=== PATIENT | female | born 1985 | race Caucasian/White ===

== ENCOUNTER 2024-03-27 13:58 | Outpatient (REF) | payer OTHER, SELFPAY ==
--- OUTSIDE RECORDS SUMMARY | 2024-03-27 14:10 | XMS_ITS | Continuity of Care Document ---
Author Organization [facility] ter Address [address] [place] [id number]- Support Name Relationship Address Phone MARY CHAIREZ Personal Relationship Unknown U navailable LUL PAZ Personal Relationship Unknown Un available ALEXANDER, ARIEL child Unknown Unavailable MIHAELA, SELWYN grandparent Unknown Unavailable ALEXANDER, PAVITHRA child Unknown Unavailable MIHAELA, MARY Personal Relationship Unknown U navailable MIHAELA, MARY Personal Relationship Unknown U navailable PAZ, LUL Personal Relationship Unknown Un available MIHAELA, MARY Personal Relationship Unknown U navailable PAZ, ALEXANDER Personal Relationship Unknown Un available PAZ, LUL Personal Relationship Unknown Un available PAZ, LUL Personal Relationship Unknown Un available MIHAELA, MARY Personal Relationship Unknown U navailable ALEXANDER, ARIEL unrelated friend Unknown Unavaila ble PAZ, LUL Personal Relationship Unknown Un available PAZ, LUL Personal Relationship Unknown Un available MIHAELA, MARY Personal Relationship Unknown U navailable PAZ, LUL Personal Relationship Unknown Un available MIHAELA, MARY Personal Relationship Unknown U navailable Care Team Providers Care [employer] Consultant Name Role Phone Zahira Ma MD Primary Care Physician [phone] [place] [facility] [place]): [place]13[place] - 03/13/[address] [address]- Discharge Disposition: A-D/C Home Attending Physician: Danny Ramsay MD Admitting Physician: Danny Ramsay MD Referring Physician: Danny Ramsay MD Encounter Type: Disch Daystay Allergies, Adverse Reactions, Alerts Substance Criticality Severity Reaction Reaction Severity Status Ceclor rash Active Glutens GI distress has celiac disease Active Immunizations Given and Recorded Vaccine Date Status Refusal Reason influenza virus vaccine, inactivated 1 03/02/24 Gi tobias influenza virus vaccine, inactivated 03/01/23 Juan M rded influenza virus vaccine, inactivated 02/15/22 Juan M rded influenza virus vaccine, inactivated 02/09/21 Juan M rded influenza virus vaccine, inactivated 01/09/20 Juan M rded influenza virus vaccine, inactivated 01/22/19 Give n influenza virus vaccine, inactivated 01/04/18 Juan M rded influenza virus vaccine, inactivated 01/12/17 Juan M rded influenza virus vaccine, inactivated 04/23/13 Give n influenza virus vaccine, inactivated 01/02/09 Give n tetanus/diphtheria/pertussis, acel(Tdap) 06/13/23 Recorded tetanus/diphtheria/pertussis, acel(Tdap) 08/01/19 Recorded tetanus/diphtheria/pertussis, acel(Tdap) 01/03/18 Recorded SARS-CoV-2(COVID-19)mRNA-LNP vac([id number]) 03/01/23 Recorded pneumococcal 20-valent conjugate vaccine 11/21/22 Given [id number] 12y+ bivalent booster vax 03/24/22 Recorded SARS-CoV-2 (COVID-19) mRNA-1273 vaccine 01/10/21 R ecorded SARS-CoV-2 (COVID-19) mRNA-1273 vaccine 06/04/20 R ecorded SARS-CoV-2 (COVID-19) mRNA-1273 vaccine 05/07/20 R ecorded FluLaval (oldterm) 01/19/10 Given influ virus vac, H1N1, inactive(oldterm) 05/05/09 Given Tet/Diphth/Acel, Pertussis (oldterm) 2 06/26/08 Gi tobias Pneumococcal Vaccine (oldterm) 06/16/08 Given Influenza Virus Vaccine (oldterm) 01/28/08 Given Influenza Inactive (IM) (oldterm) 02/08/07 Given diphtheria-tetanus toxoids (DT) 02/08/98 Given Hepatitis B Vaccine (old term) 3 02/04/97 Given Measles/Mumps/Rubella Virus Vaccine 4 07/04/88 Giv en 1Result Comment: [id number] 2Admin Note: SANOFI PASTEUR 3Admin Note: # 2 : 03-11-97, # 3 : 11-08-97 4Admin Note: # 2 : 1-98 Medications desmopressin 0.15 mg/inh nasal spray 1 sprays, Nares, Both, Once, dose may be repeated after 12 hrs and thereafter once daily if needed up to 3 days., # 2.5 mL, 1 Refills, Soft Stop, 08/14/23 11:23:00 PM EDT, [place], [facility], Partial fill upon patient request if the prescription is for a schedule II opioid drug., 177,cm, 08/14/23 14:19:00 EDT, Height, 123.7, kg, 08/14/23 14:19:00 EDT, Dry Weight Start Date: 08/14/23 Status: Ordered Quantity: 2.5 Unit: mL Repeat number: 2 desmopressin 0.15 mg/inh nasal spray 1 sprays, Nares, Both, Once, dose may be repeated after 12 hrs and thereafter once daily if needed up to 3 days., # 2.5 mL, 1 Refills, Soft Stop, 08/16/23 8:41:00 AM EDT, [place], [facility] [address], Partial fill upon patient request if the prescription is for a schedule II opioid drug., 177, cm, 08/14/23 14:19:00 EDT, Height, 123.7, kg, 08/14/23 14:19:00 EDT, Dry Weight Start Date: 08/16/23 Status: Ordered Quantity: 2.5 Unit: mL Repeat number: 2 desmopressin 0.15 mg/inh nasal spray 1 sprays, Naris, Left, Once, PRN Other, if bleeding or before procedure, # 5 mL, 1 Refills, Soft Stop, 09/28/20 12:39:00 PM EDT, [place], Partial fill upon patient request if the prescription is for a schedule II opioid drug. Start Date: 09/28/20 Status: Ordered Quantity: 5.0 Unit: mL Repeat number: 2 desmopressin 4 mcg/ml intravenous solution 8.75 mL = 35 mcg, IV Infusion, Once, 35 mcg in 50 cc NS IVPB 0ver 30 min , 30 min prior to the procedure, # 8.75 mL, 0 Refills, Soft Stop, 02/06/20 5:15:00 PM EDT Start Date: 02/06/20 Status: Ordered Quantity: 8.75 Unit: mL Repeat number: 1 ferrous gluconate 324 mg oral tablet 1 tablet = 324 mg, By Mouth, Daily, # 90 tablet, 1 Refills, Maintenance, 08/31/21 5:29:00 PM EDT, [id number], Partial fill upon patient request if the prescription is for a schedule II opioid drug., 178, cm, 07/31/21 11:01:00 EDT, Height, 126, kg, 09/29/20 9:44:00 EDT, Dry Weight Start Date: 08/31/21 Status: Ordered Quantity: 90.0 Unit: tablet Repeat number: 2 hydrOXYzine pamoate 25 mg oral capsule 1 capsule = 25 mg, By Mouth, 2 times a day, PRN for anxiety, # 40 capsule, 1 Refills, Maintenance, 03/19/20 10:06:00 AM EST, Capsule, [facility], Partial fill upon patient request if the prescription is for a schedule II opioid drug., 178, cm, 03/18/20 8:29:00 EST, Height, 123.2, kg, 03/02/20 10:59:00 EST, Dry Weight Start Date: 03/19/20 Status: Ordered Quantity: 40.0 Unit: capsule Repeat number: 2 Indication: Other mental disorders complicating the puerperium ibuprofen 800 mg oral tablet 800 mg, 1, tablet, By Mouth, Every 8 hours, PRN, (4-6), may give 400mg per patient preference and re-dose with 400mg within 8 hours if needed. Patient should only receive a total of 800mg of Ibuprofen every 8 hours., Refills 0, Maintenance, Pain , Moderate, 10/05/19 7:47:00 AM EDT Start Date: 10/05/19 Status: Ordered Repeat number: 1 Incassia 0.35 mg oral tablet TAKE 1 TABLET BY MOUTH EVERY DAY Start Date: 11/24/23 Status: Ordered Repeat number: 1 levothyroxine 75 mcg (0.075 mg) oral tablet See Instructions, TAKE 1 TABLET BY MOUTH EVERY DAY, # 90 tablet, 1 Refills, Maintenance, 02/28/24 1:07:00 PM EST, [id number], 180, cm, 02/09/24 10:26:00 EDT, Height, 117, kg, 09/08/23 15:32:00 EDT, Dry Weight Start Date: 02/28/24 Status: Ordered Quantity: 90.0 Unit: tablet Repeat number: 1 LORazepam 0.5 mg oral tablet 1 tablet = 0.5 mg, By Mouth, 0 Refills, Maintenance, 02/24/20 4:42:00 PM EST, Partial fill upon patient request Start Date: 02/24/20 Status: Ordered Repeat number: 1 oxyCODONE 5 mg oral tablet 5 mg, By Mouth, Every 4 hours, PRN, # 6 tablet, Refills 0, Tot. Refills 0, Acute 03/14/24 4:55:00 PMEST, Pain , Severe, 03/13/24 4:55:00 PM EST, Route to Pharmacy Electronically, [id number], Partial fill upon patient request if the prescription is for a schedule II opioid drug., 180, cm, 03/02/24 9:05:00 EST, Height, 129, kg, 03/13/24 14:58:00 EST, Dry Weight Start Date: 03/13/24 Stop Date: 03/14/24 Status: Ordered Quantity: 6.0 Unit: tablet Repeat number: 1 ProAir HFA 90 mcg/inh inhalation aerosol with adapter 2, puffs, Inhalation, Every 4 hours, PRN, # 8.5 each, Refills 2, Maintenance, 09/20/22 7:56:00 AM EDT, Route to Pharmacy Electronically, [id number], [id number], 178, cm,05/17/22 13:43:00 EST, Height, 126, kg, 09/29/20 9:44:00 EDT, Dry Weight Start Date: 09/20/22 Status: Ordered Quantity: 8.5 Unit: each Repeat number: 1 sertraline 100 mg oral tablet 2 tablet = 200 mg, By Mouth, Daily, # 180 tablet, 3 Refills, Maintenance, 02/09/24 10:39:00 AM EDT, [id number], 180, cm, 02/09/24 10:26:00 EDT, Height, 117, kg, 09/08/23 15:32:00 EDT, Dry Weight Start Date: 02/09/24 Status: Ordered Quantity: 180.0 Unit: tablet Repeat number: 4 Vitamin D3 1000 intl units oral capsule 1 capsule = 25 mcg, By Mouth, Daily, # 100 capsule, 2 Refills, Maintenance, 08/31/21 5:30:00 PM EDT,Capsule, [facility], Partial fill upon patient request if the prescription is for a schedule II opioid drug., 178, cm, 07/31/21 11:01:00 EDT, Height, 126, kg, 09/29/20 9:44:00 EDT, Dry Weight Start Date: 08/31/21 Status: Ordered Quantity: 100.0 Unit: capsule Repeat number: 3 Problem List Condition Confirmation Course Effective Dates Status Health St atus Informant Acute sinusitis Confirmed Active Anxiety disorder Confirmed Active Asthma, mild intermittant Confirmed Active Tendonitis, calcific, shoulder Confirmed Active Carpal tunnel syndrome, left Confirmed Active Celiac disease Confirmed Active Dyspnea Confirmed Active 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 Active Carmen's disease Confirmed Active History of COVID-19 Confirmed Active Hypothyroid Confirmed Active Iron deficiency anemia Confirmed Active Kyphosis deformity of spine Confirmed Active Leukocytosis Confirmed Active Low back pain Confirmed Active Palpitations Confirmed Active Healthcare maintenance Confirmed Active PCOS (polycystic ovarian syndrome) Confirmed Active depression Confirmed Active Major depression, recurrent Confirmed Active Seasonal allergic rhinitis Confirmed Active Severe obesity (BMI 35.0-39.9) with comorbidity Confirmed Active Right shoulder pain Confirmed Active Shoulder pain, left Confirmed Active Vitamin D deficiency Confirmed Active von Willebrand disease Confirmed Active Vital Signs Most recent to oldest [Reference Range]: 1 2 Weight 129 kg (03/13/24 2:58 PM) Oxygen Saturation [94-100 %] 97 % (03/13/24 4:59 PM) 97 % (03/13/24 2:58 PM) Pulse Rate [55-90 bpm] 69 bpm (03/13/24 2:58 PM) Blood Pressure [90-138/55-84 mm Hg] 134/ 76mm Hg (03/13/24 4:45 PM) 129/78mm Hg (03/13/24 2:58 PM) Respiratory Rate [16-30 br/min] 11 br/mi n *L* (03/13/24 4:59 PM) 13 br/min *L* (03/13/24 2:58 PM) Temperature [96.8-100.4 DegF] 98.4 DegF (03/13/24 4:45 PM) 97.3 DegF (03/13/24 2:58 PM) Mode of Delivery (Oxygen) Room air (03/13/24 4:45 PM) Room air (03/13/24 2:58 PM) Blood pressure sites Arm, right (03/13/24 4:45 PM) Arm, right (03/13/24 2:58 PM) Temperature Route Temporal (03/13/24 4:45 PM) Temporal (03/13/24 2:58 PM) Dry Weight 129 kg (03/13/24 2:58 PM) Weight Obtained Via Standing scale (03/13/24 2:58 PM) Dry Weight Obtained Via Standing scale (03/13/24 2:58 PM) Social History Social History Type Response Smoking Status Never smoker entered on: 03/07/14 Sex Sex Representation Female (finding) History and physical note * Event Display: History and Physical Hospital Authored Date: [id number] Note * Cheryl Mattson RN: PERFORM Event Display: Discharge/Transfer Note Hospital Authored Date: [id number] Nursing Discharge Note Entered On: 03/13/2024 17:33 EST Performed On: 03/13/2024 17:33 EST by Cheryl Mattson RN Nursing Discharge Note 2 Discharge Time : 03/13/2024 17:31 EST Discharge Level of Care at Discharge : Home/Fdc/Foster Care Patient Left Unit Via : Ambulatory Patient Accompanied Off Unit with : Significant other DC Instructions Provided & Signed by Pt : Yes Patient Understands D/C Instructions : Yes Verbalized Understanding of D/C Plan By : Significant other Patient Instructions Discharge Signed : Yes Did Pt have Specialty Bed or Wound Vac : No Cheryl Mattson RN - 03/13/2024 17:33 EST * Jennifer Moncada RN: PERFORM Event Display: Patient Education/Instruction Authored Date: [id number] Surgery Adult Discharge Instructions [address] [address] Name: MARY CHAIREZ : 1985?? Visit: 03/13/2024 14:30?? Current Date: 03/13/2024 16:56 ?? Account: [id number]?? Surgery Discharge Instructions We would like to thank you for allowing us to assist you with your healthcare needs. The following includes patient education materials and information regarding your injury/illness. Our entire staffstrives to provide an excellent experience for our patients and their families. PLEASE ENSURE YOU FOLLOW-UP PER THE INSTRUCTIONS BELOW! ?? YOUR OPINION IS IMPORTANT TO US! Please complete the survey you may receive by mail or email. Your feedback will be used to make improvements to the healthcare experiences of our patients and their families. Surveys are administered by [email or web address]. ?? If further treatment with your primary care physician or another doctor is recommended, it is important for you to keep the appointment. Call your primary care physician or return to the Emergency Department immediately if your condition worsens, fails to improve, or new symptoms develop. If you need to find a doctor, you can call [facility] [employer] Link for a referral at [phone] or toll free at [phone] or log in to [email or web address].. ?? [facility], in keeping with [facility] guidance, no longer requires face masks for staff, patientsor visitors in most situations. Similiar to time spent indoors at other locations, there is the chance that you were exposed to repiratory viruses during your time with us (such as flu or COVID-19). If you develop symptoms concerning for a viral respiratory infection, please seek testing (and treatment if indicated) from your medical provider or home test kit. ?? You can view and manage your care through the patient portal or by using a health care jerry of your choosing. GoodRx is a website that allows you to securely view your medical information including your hospital discharge summary, office visit summaries, medications and follow-up visits. You can also request appointments, renew medications, and request access to your medical information using a health care jerry of your choosing, or just ask a question. You are entitled to know the individuals who participated in your treatment. This information is available within your medical record and will be provided upon your request. You can enroll at [email or web address] or register d uring your next office visit. You have been discharged from [facility], Patient Care Unit: [facility]??. If you have any questions regarding these instructions after you leave, please call us and we will be happy to assist you. [facility] Your Care Team Attending Physician Danny Ramsay MD?? Consulting Providers Tate Peters MD?? Discharging Providers Danny Ramsay MD Reason for Admission CARPAL TUNNEL SYNDROME CS DS Primary Care Provider Zahira Ma MD? Advance Directive Health Care Proxy on File Yes - Health Care Proxy What to do next Instructions From Your Doctor ?? Orders? 03/13/24 16:54:00 EST?? Prescriptions??, ??03/13/24 16:54:00 EST?? Instructions from your Care Team Follow up with provider. Ice 20 min on/40 min off. Range of Motion Elevate hand on pillow Scheduled Follow-Up Appointments Monday 12:40 PM EST ?? With: Zahira Ma MD Where: [address] [address]- Status: Pending You Need to Schedule the Following Appointments Follow Up with??Danny Ramsay Where: [address] [place] [address] [facility] (1) Follow Up with??Zahira Ma When:??In 0 days Discharge Medications MARY CHAIREZ :1985 Visit Date:03/13/2024 Medications: Please continue your medications until treatment is completed or stopped by your provider. You may resume your daily prescription medications. Discuss any questions related to medications with your provider. What How Much When Why Instructions Next Dose New Oxycodone (oxyCODONE 5 mg oral tablet) 5 Milligram Oral Every 4 hours as needed for Pain , Severe Pickup at [facility] #[id number] Unchanged Albuterol (ProAir HFA 90 mcg/ inh inhalation aerosol with adapter) 2 puff(s) Inhalation Every 4 hours as needed for NEEDED FOR WHEEZING/SHORTNESS OF BREATH Unchanged Cholecalciferol (Vitamin D3 1000 intl units oral capsule) 1 capsule Oral Daily Unchanged Desmopressin (desmopressin 0.15 mg/ inh nasal spray) 1 spray(s) Nares, Both Once dose may be repeated after 12 hrs and thereafter once daily if needed up to 3 days. ?? Unchanged Desmopressin (desmopressin 0.15 mg/ inh nasal spray) 1 spray(s) Nares, Both Once dose may be repeated after 12 hrs and thereafter once daily if needed up to 3 days. ?? Unchanged Desmopressin (desmopressin 0.15 mg/ inh nasal spray) 1 spray(s) Naris, Left Once as needed for Other if bleeding or before procedure ?? Unchanged Desmopressin (desmopressin 4 mcg/ ml intravenous solution) 8.75 Milliliter Intravenous Infusion Once 35 mcg in 50 cc NS IVPB 0ver 30 min , 30 min prior to the procedure ?? Unchanged Ferrous Gluconate (ferrous gluconate 324 mg oral tablet) 1 tab(s) Oral Daily Unchanged HydrOXYzine (hydrOXYzine pamoate 25 mg oral capsule) 1 capsule Oral Twice a day as needed for for anxiety depression Unchanged Ibuprofen (ibuprofen 800 mg oral tablet) 1 tab(s) Oral Every 8 hours as needed for Pain , Moderate (4-6), may give 400mg per patient preference and re-dose with 400mg within 8 hours if needed. ?? Patient should only receive a total of 800mg of Ibuprofen every 8 hours. ?? Unchanged Levothyroxine (levothyroxine 75 mcg (0.075 mg) oral tablet) See instructions TAKE 1 TABLET BY MOUTH EVERY DAY ?? Unchanged Lorazepam (LORazepam 0.5 mg oral tablet) 1 tab(s) Oral Unchanged Norethindrone (Incassia 0.35 mg oral tablet) TAKE 1 TABLET BY MOUTH EVERY DAY ?? Unchanged Sertraline (sertraline 100 mg oral tablet) 2 tab(s) Oral Daily Pharmacy Information [facility]/pharmacy #[id number]: [address], [place] [id number] [phone] Allergies (NKA means No Known Allergies) Ceclor??(rash) Glutens??(GI distress, has celiac disease) Education Materials Below is the list of Educational Leaflet Providered with your Discharge Instructions. Web[employer] Ignite Patient Education - ??NSAID Analgesic Schedule?? Valuables and Belongings I fully understand and agree that [facility] accepts no responsibility for all my personal property including clothing, toilet articles, radios, jewelry, dentures, hearing aids, rings, money, or any other property that is in my possession or is brought to me after admission. I understand certain valuables may be placed in a hospital safe for a short period of time. I understand that the hospital is not liable for loss or damage due to accident, fire, or other natural occurrence while said property is in the safe. I accept full responsibility for any personal property that I keep with me, and will not hold the hospital responsible in case of loss or disappearance. I acknowledge that i have been encouraged to send valuables and belongings home. ?? Review of Valuable and Belonging List: With patient Date for Pt to Sign Valuables/Belongings: 03/13/24 14:58:00 ?? Valuables & Belongings ?? Clothes Electronic devices Jewelry Monetary Items Personal devices Miscellaneous Medications (Valuables) Valuables at Bedside Pants, Shirt, Shoes, Undergarments Cell phone ? Valuables Sent Home ? Valuables Sent to Security ? Valuables Sent to Locker ? Other Discharge Information ? Pulmonary Rehab Status?? Pulmonary Rehab Discharge Status?? Respiratory Rate:??13 br/min??Low ? Common Emergency Awareness Tips IS IT A STROKE? Act FAST and Check for these signs: FACE Does the face look uneven? ARM Does one arm drift down? SPEECH Does their speech sound strange? TIME Call at any sign of stroke ?? Heart Attack Signs Chest discomfort: Most heart attacks involve discomfort in the center of the chest and lasts more than a few minutes, or goes away and comes back. It can feel like uncomfortable pressure, squeezing, fullness or pain. Discomfort in upper body: Symptoms can include pain or discomfort in one or both arms, back, neck, jaw or stomach. Shortness of breath: With or without discomfort. Other signs: Breaking out in a cold sweat, nausea, or lightheaded. Remember, MINUTES DO MATTER. If you experience any of these heart attack warning signs, call to get immediate medical attention! ?? Smoking can increase your chances of developing chronic health problems and can cause harmful effects to other family members in your house. If you smoke, you are strongly encouraged to quit. Please call [facility] Link at [phone] or [phone] ([phone]) or log in to [email or web address] for referrals to smoking cessation programs. ?? The National Suicide Prevention Hotline is available 31/10 if you or someone you know needs to find a reason to keep living. By calling 7-893-231-WellFX (6731) you'll be connected to a skilled, trained counselor at a crisis center in your area. SURGERY DISCHARGE INSTRUCTIONS SIGNATURE PAGE MARY CHAIREZ Location:[facility] Registration Date and Time:03/13/2024 14:30 EST Primary Care Physician: Anil MERA, Zahira Cleveland, Attending Physician: Devendra MERA, Danny Cleveland, I MARY CHAIREZ, have received the above patient education materials/instructions and have verbalized understanding. If ambulance or transport services are being used I further acknowledge being given a choice of service. ?? If you need to contact me, please call me at this number: . Patient/Site Leasing Agent Name: Patient/Site Leasing Agent Signature: Relationship to Patient: Witness Name/Signature: Date: * Jennifer Moncada RN: PERFORM, SIGN, VERIFY Event Display: Patient Education Handout Authored Date: * Jennifer Moncada RN: PERFORM Event Display: Patient Education Leaflets Authored Date: NSAID Analgesic Schedule ?? 604 NSAID???s Analgesic Schedule ?? Pain is the primary source of illness following your procedure and can include dehydration, difficulty and painful swallowing, and weight loss. These symptoms can lead to increased post-operative visits and hospital readmission. The best way to control pain is to take pain medications regularly. Your doctor has recommended both Ibuprofen and Acetaminophen (generic/store brands are okay, too). These can be picked up over the counter at your pharmacy of choice. Follow the instructions on the bottle to determine the proper dosage to give. The simplest way to take these medications it to rotate the two at 3-hour intervals. Here is a sample diagram. The time you take your medications may vary from this example. Do not give Ibuprofen more than every 6 hours or Acetaminophen every 4 hours. Do not give Acetaminophen if your doctor has given you a prescription that contains Acetaminophen. ? Patient Care team information Care Team Personnel Name: Mignon Davis Position: [facility] Onco RN Member Role: Primary Care Nurse Name: Zahira Ma MD Position: [facility] Physician - Primary Care Member Role: PCP Address: [address] [place] [address], [address] [place], [place] [address] Telecom: Name: Eryn Biggs [place] Position: [facility] Outreach Member Role: [employer] Consulting Physician Name: Alexa Paz RN Position: [facility] OB RN Member Role: Primary Care Nurse Care Team Related Persons Name: SELWYN CHAIREZ Name: PAVITHRA ALEXANDER Name: ARIEL ALEXANDER Name: ARIEL ALEXANDER Insurance Providers Guarantor name: MARY MIHAELA Health Plan Information #: 1 Payer: [employer] Member Number: [id number] Policy Number: NA Group Number: [id number] Health Plan Information #: 2 Payer: [facility] [employer] Member Number: [id number] Policy Number: NA Group Number: [id number]
[2024-03-27 17:31] LABS: MANUAL DIFF FLAG NO
[2024-03-27 17:40] LABS: Basophils Absolute Auto 0.1 X10*3/uL (0.0-0.2); Basophils Percent Auto 0.5 % (0-2); Eosinophils Absolute Auto 0.2 X10*3/uL (0.0-0.4); Eosinophils Percent Auto 1.6 % (0-4); Hematocrit 34.9 % (37.0-47.0); Hemoglobin 10.9 g/dl (12.0-16.0); Imm Gran Abs Auto 0.05 X10*3/uL (0.00-0.03); Imm Gran Pct Auto 0.5 % (0.0-0.4); Lymphocytes Absolute Auto 4.3 X10*3/uL (1.2-4.9); Lymphocytes Percent Auto 43.4 % (20-40); Mean Corpuscular HGB Conc 31.2 g/dl (31.0-35.0); Mean Corpuscular Hemoglobin 23.5 pg (27.0-33.0); Mean Corpuscular Volume 75.2 fL (80.0-98.0); Monocytes Absolute Auto 0.4 X10*3/uL (0.1-1.2); Monocytes Percent Auto 4.4 % (2-11); Neutrophils Absolute Auto 4.9 x10*3/uL (2.0-8.3); Neutrophils Percent Auto 49.6 % (45-73); Platelet Count 328 X10*3/uL (160-400); Red Blood Count 4.64 X10*6/uL (4.20-5.50); Red Cell Distribution Width 16.2 % (11.0-16.0); White Blood Count 9.9 X10*3/uL (4.8-10.8)
[2024-03-27 18:04] LABS: Alanine Aminotransferase 17 U/L (0-31); Albumin Level 4.5 g/dL (3.5-5.0); Alkaline Phosphatase 48 U/L (39-117); Anion Gap 13 (12-20); Aspartate Amino Transferase 18 U/L (5-31); Bilirubin Total 0.3 mg/dL (0.0-1.0); Blood Urea Nitrogen 13 mg/dL (9-16); Calcium 9.8 mg/dL (8.4-10.2); Carbon Dioxide 26 mmol/L (22-29); Chloride 104 mmol/L (96-108); Cholesterol 241 mg/dL (<200); Estimated Glomerular Filt Rate > 60; Glucose Random 104 mg/dL (60-115); HDL Cholesterol 62 mg/dL (>40); Iron 68 mcg/dL (30-160); Magnesium 2.1 mg/dL (1.6-2.6); Percent Iron Saturation 21 % (15-50); Potassium 3.7 mmol/L (3.3-5.1); Sodium 139 mmol/L (135-145); Total Iron Binding Capacity 321 mcg/dL (228-428); Total Protein 8.2 g/dL (6.5-8.0); Unsaturated Iron Binding 253 ug/dL
[2024-03-27 18:09] LABS: Ferritin 63 ng/mL (10-122); Thyroid Stimulating Hormone 96.54 uIU/mL (0.32-4.0); Vitamin D 25-OH Total 20.9 ng/mL (>30)
[2024-03-27 18:12] LABS: Vitamin B12 288 pg/mL (200-900)
[2024-03-28 11:00] LABS: LDL Cholesterol Direct 156 mg/dL (<100)
[2024-03-28 15:44] LABS: Hepatitis B Surface Ab Qnt <5 mIU/mL (> OR = 10)
[2024-04-02 20:39] LABS: Lipoprotein A 55 nmol/L (<75)
[2024-04-05 05:44] LABS: Apolipoprotein B 133 mg/dL (<90)
== END 2024-03-27 13:59 | disposition home or self-care (01) ==
LOC: HO.WFDLDS 13:58
PROVIDERS: Visit Provider Internal Medicine
DX: Z00.00 Encounter for general adult medical examination without abnormal findings (principal); K90.0 Celiac disease; F33.9 Major depressive disorder, recurrent, unspecified; E06.3 Autoimmune thyroiditis; D68.00 Von Willebrand disease, unspecified
CPT/HCPCS: 36415; 80053; 82172; 82306; 82465; 82607; 82728; 83540; 83695; 83718; 83721; 83735; 84443; 85025; 86317

== ENCOUNTER 2024-11-15 09:21 | Outpatient (REF) | payer OTHER, SELFPAY ==
--- OUTSIDE RECORDS SUMMARY | 2024-11-15 09:28 | XMS_ITS | Encounter Summary ---
Author Organization [facility] Address [address] [place] [address] Care Team Providers Care Financial Recording Clerk Name Role Phone Ramy Marin Primary Care Provider UnavailZahira Cornejo Primary Care Provider UnavailRamy Flores Unavailable Unavailable Encounter Details Date Type Department Care Team Description 08/24/2010 Water Resource Consultant Report Medical Records [address] [place] [address] Emery Cheng Social History Tobacco Use Types Packs/Day Years Used Date Smoking Tobacco: Never Assessed Sex Assigned at Date Recorded Not on file Job Start Date Occupation Industry Not on file Not on file Not on file documented as of this encounter Plan of Treatment Not on file documented as of this encounter Visit Diagnoses Not on filedocumented in this encounter Care Teams Financial Recording Clerk Relationship Specialty Start Date End Date Ramy Marin PCP - General 10/08/99 07/19/20 Zahira Ma PCP - General Internal Medicine 07/20/20 Ramy Marin 07/20/20 documented as of this encounter
--- OUTSIDE RECORDS SUMMARY | 2024-11-15 09:28 | XMS_ITS | Patient Health Record ---
Author Organization [facility] Address [address] [place] [phone] Care Team Providers Care Training Engineer Name Role Phone Driss MERA, Jamilah Primary Care Provider Un available Clinton Key Unavailable [phone] Reason For Referral No Information Medications Medication SIG (Take, Route, Frequency, Duration) Notes Start Date End Date Status Hyoscyamine Sulfate 0.125 MG TAKE 1-2 TABLETS BY MOUTH 4 TIMES DAILY NEEDED FOR ABDOMINAL CRAMPS for 30 Active Plan Of Treatment No Information
--- OUTSIDE RECORDS SUMMARY | 2024-11-15 09:28 | XMS_ITS | Clinical Summary ---
Author Organization [facility] Address [address] [place] [address] Phone Care Team Providers Care Panel Cutter Name Role Phone Unavailable Primary Care Provider Unavailabl e Immunizations Immunization Administration Dates Next Due DTP 10/09/1991,08/08/1988 Hep B, ped/adol 11/08/1997,03/10/1997,01/08/1997 MMR 02/08/1998,06/08/1988 OPV 10/09/1991,06/08/1988 Td (adult) (Tenivac), 5 Lf t etanus toxoid, PF, adsorbed 02/08/1998 Family History Relation Name Status Comments Mother Alive Mother: Alive a nd well Sister 1 Alive Sister: Alive a nd well, Alive and well Sister 2 Alive Sister: Alive a nd well, Alive and well Social History Tobacco Use Types Packs/Day Years Used Date Smoking Tobacco: Never Assessed Comments Unknown Sex and Gender Information Value Date Recorded Sex Assigned at Not on file Legal Sex Female 4:37 PM EDT Gender Identity Not on file Sexual Orientation Not on file Plan of Treatment Health Maintenance Due Date Last Done Comments IPV Vaccines (3 of 3 - 4-dos e series) 04/10/1992 10/09/1991, 06/08/1988 DTaP,Tdap,and Td Vaccines (4 - Tdap) 02/09/1998 02/08/1998, 10/09/1991, 08/08/1988 Varicella Vaccines (1 of 2 - 13+ 2-dose series) 10/24/1999 HPV Vaccines (1 - 3-dose SCD M series) 2013 COVID-19 Vaccine (2023-2 5 season) 2023 Influenza Vaccines (#1) 2024 Hepatitis B Vaccines Completed 11/08/1997, 03/10/1997, 01/08/1997 MMR Vaccines Completed 02/08/1998, 06/08/1988 HIB Vaccines Aged Out No longer eligi ble based on patient's age to complete this topic Hepatitis A Vaccines Aged Out No long er eligible based on patient's age to complete this topic Men B Vaccine Aged Out No longer elig ible based on patient's age to complete this topic Meningococcal Vaccine Aged Out No artie peter eligible based on patient's age to complete this topic Pneumococcal Vaccine Aged Out No long er eligible based on patient's age to complete this topic
--- OUTSIDE RECORDS SUMMARY | 2024-11-15 09:28 | XMS_ITS | Clinical Summary ---
Author Organization [facility] Address [address] [place] [address] Care Team Providers Care Media Director Name Role Phone Unavailable Primary Care Provider Unavailabl e Social History Tobacco Use Types Packs/Day Years Used Date Smoking Tobacco: Never Assessed Comments Unknown Sex and Gender Information Value Date Recorded Sex Assigned at Not on file Legal Sex Female 10:52 AM EST Gender Identity Not on file Sexual Orientation Not on file Plan of Treatment Health Maintenance Due Date Last Done Comments Hepatitis C Virus Screening 1986 HIV Screening 10/24/1999 DTaP/Tdap/Td Vaccines (1 - Tdap) 2005 Hepatitis B Vaccines (1 of 3 - 19+ 3-dose series) 2005 COVID-19 Vaccine (2023-2 5 season) 2023 HPV Vaccines Aged Out No longer eligi ble based on patient's age to complete this topic Pneumococcal Vaccine: Pediat will (0-5 Years) and At-Risk Patients (6 to 49 Years) Aged Out No longer eligible b ased on patient's age to complete this topic
[2024-11-15 12:58] LABS: Free T4 (Free Thyroxine) 0.82 ng/dL (0.71-1.85)
== END 2024-11-15 09:22 | disposition home or self-care (01) ==
LOC: HO.WFDLDS 09:21
PROVIDERS: Visit Provider Internal Medicine
DX: E03.9 Hypothyroidism, unspecified (principal)
CPT/HCPCS: 36415; 84439; 84443

== ENCOUNTER 2025-02-07 07:58 | Outpatient (REF) | payer OTHER, SELFPAY ==
--- OUTSIDE RECORDS SUMMARY | 2025-02-07 08:03 | XMS_ITS | Encounter Summary ---
Author Organization [facility] Address [address] [place] [phone] Phone Care Team Providers Care V Belt Builder Name Role Phone Mignon Quiroga MD Primary Care Provider Encounter Details Date Type Department Care Team (Late st Contact Info) Description 11/24/2016 Conversion Encounter [facility] [place] [address] [place] [address] Social History Tobacco Use Types Packs/Day Years Used Date Smoking Tobacco: Never Assessed Comments Unknown Sex and Gender Information Value Date Recorded Sex Assigned at Not on file Legal Sex Female 4:37 PM EDT Gender Identity Not on file Sexual Orientation Not on file documented as of this encounter Plan of Treatment Not on file documented as of this encounter Visit Diagnoses Not on filedocumented in this encounter Care Teams V Belt Builder Relationship Specialty Start Date End Date Mignon Quiroga MD [address] [place] [address] PCP - General 11/18/16 07/18/22 documented as of this encounter
--- OUTSIDE RECORDS SUMMARY | 2025-02-07 08:03 | XMS_ITS | Clinical Summary ---
Author Organization [facility] Address [address] [place] [address] Phone Care Team Providers Care Supply Requirements Officer Name Role Phone Unavailable Primary Care Provider [...] (1 - 3-dose SCD M series) 2013 Influenza Vaccines (#1) 2024 COVID-19 Vaccine ( - 2024-2 6 season) 2024 Hepatitis B Vaccines Completed 11/08/1997, 03/10/1997, [...]
--- OUTSIDE RECORDS SUMMARY | 2025-02-07 08:03 | XMS_ITS | Clinical Summary ---
Author Organization [facility] Address [address] [address] Phone Care Team Providers Care Senior Living Advisor Name Role Phone Zahira Ma MD Primary Care Provide r Allergies Active Allergy Reactions Criticality Noted Date Comments Cefaclor Rash Low 10/14/2020 Gluten 10/14/2020 Medications levothyroxine (SYNTHROID, LEVOTHROID) 100 MCG tablet Take by mouth. Acti ve albuterol 90 mcg/actuation inhaler Inhale into the lungs. 2 Active cholecalciferol , vitamin D3, (VITAMIN D3) 10 mcg (400 unit) capsule Take 25 mcg by mouth. 2 Active sertraline HCl (SERTRALINE ORAL) Take 150 mg by mouth. Active lidocaine (LIDODERM) 5 % APPLY 2 PATCHES TOPICALLY EVERYDAY REMOVE AFTER 12 HOURS 3 Active loratadine (CLARITIN) 10 mg tablet Take 10 mg by mouth daily. Active Social History Tobacco Use Types Packs/Day Years Used Date Smoking Tobacco: Never Assessed Education Answer Date Recorded Are you interested in more education? Not on you e 08/05/2022 Are you concerned about learning? Not on file 08/05/2022 No 08/05/2022 No 08/05/2022 Digital Access Answer Date Recorded No 09/03/2022 No 09/03/2022 No 09/03/2022 Reliable internet access at home? Not on file 09/03/2022 Device with a working camera? Not on file Comments Unknown Sex and Gender Information Value Date Recorded Sex Assigned at Not on file Legal Sex Female 10:27 PM EDT Gender Identity Not on file Sexual Orientation Not on file Last Filed Vital Signs Vital Sign Reading Time Taken Comments Blood Pressure 124/84 07/17/2022 11:45 AM EDT Pulse 89 07/17/2022 11:45 AM EDT Temperature 36.8 C (98.2 F) 07/17/2022 11:45 AM EDT Respiratory Rate 20 07/17/2022 11:4 5 AM EDT Oxygen Saturation 100% 07/17/2022 11: 45 AM EDT Inhaled Oxygen Concentration - - Weight 123.5 kg (272 lb 3.2 oz) 023 11:45 AM EDT Height 177.8 cm (5' 10 ) 07/17/2022 11: 45 AM EDT Body Mass Index 39.06 07/17/2022 11:45 AM EDT Plan of Treatment Health Maintenance Due Date Last Done Comments TSH LEVEL 1986 DEPRESSION SCREENING 1998 SMOKING Hx and SMOKELESS TOBACCO SCREENING 10/24/1999 HEPATITIS C SCREENING 2004 HIV ONE-TIME SCREENING (18-65 YEARS) 2004 PAP SMEAR 10/24/2007 SCREENING FOR DIABETES 2021 INFLUENZA VACCINE (#1) 2024 , 02/09/2021, 01/09/2020, Additional history exists COVID-19 VACCINE ( season) 2024 03/24/2022, 01/10/2021, 06/04/2020, Additional history exists Adult Td,Tdap Booster 07/31/2029 08/01/2019 , 01/03/2018, 02/08/1998 PNEUMOCOCCAL VACCINES (0-49 years) Aged Out 06/16/2008 No longer eligible based on patient's age to complete this topic HEPATITIS A VACCINES Aged Out No long er eligible based on patient's age to complete this topic HIB VACCINES Aged Out No longer eligi ble based on patient's age to complete this topic MENINGOCOCCAL VACCINES (ACWY) Aged Out No longer eligible based on patient's age to complete this topic MENINGOCOCCAL VACCINES (B) Aged Out N o longer eligible based on patient's age to complete this topic Medical Devices Not on [place] [address] [place] [address] [place] [address] [place] [address] [employer] A[employer] [facility] Care Teams Senior Living Advisor Relationship Specialty Start Date End Date Zahira Ma MD [address] [place] [id number] PCP - General Internal Medicine 07/17/22 Additional Source Comments The information contained in this document represents components of the legal health record. It is not the complete legal health record.[facility]
--- OUTSIDE RECORDS SUMMARY | 2025-02-07 08:03 | XMS_ITS | Continuity of Care Document ---
Author Organization [facility] Address [address] [place] [phone] Insurance Providers Payer Plan Claims Address Claims Phone Policy Number Group Number Relation Employer Guarantor Name Guarantor Guarantor Address Guarantor Phone HEALT Andrae TYLER ND BE MARNIE HY BRYANNA AU P ACO [address] [id number] [place] 1985 [place] [id number] Problems Condition ICD9 code ICD10 code SNOMED code Start Date End Date S tatus Encounter for screening for other metabolic disorders Z13.228 Results No Results Allergies, adverse reactions, alerts No known allergies and adverse reactions Medications No administered medications reported Vital Signs No vital signs reported Social History No smoking Hx information available
--- OUTSIDE RECORDS SUMMARY | 2025-02-07 08:03 | XMS_ITS | Clinical Summary ---
Author Organization [facility] Address [address] [place] [address] Care Team Providers Care Ocean Clam Boat Captain Name Role Phone Unavailable Primary Care Provider [...] series) 2005 COVID-19 Vaccine (2023-2 5 season) 2024 HPV Vaccines (No Doses Required) Completed Pneumococcal Vaccine: Pediat will (0-5 Years) and At-Risk Patients (6 to 49 Years) Aged Out No longer eligible b ased on patient's age to complete this topic
--- OUTSIDE RECORDS SUMMARY | 2025-02-07 08:04 | XMS_ITS | Patient Health Record ---
Author Organization [facility] Address [address] [place] [id number] Care Team Providers Care Savings Teller Name Role Phone Driss MERA, Jamilah Primary Care Provider Un available [place] Key Unavailable [phone] Reason For Referral No Information Medications Medication SIG (Take, Route, Frequency, Duration) Notes Start Date End Date Status Hyoscyamine Sulfate 0.125 MG TAKE 1-2 TABLETS BY MOUTH 4 TIMES DAILY NEEDED FOR ABDOMINAL CRAMPS; Duration: 30 Active Plan Of Treatment No Information
[2025-02-07 13:03] LABS: Free T4 (Free Thyroxine) 0.85 ng/dL (0.71-1.85)
== END 2025-02-07 07:59 | disposition home or self-care (01) ==
LOC: HO.WFDLDS 07:58
PROVIDERS: Visit Provider Internal Medicine
DX: E03.9 Hypothyroidism, unspecified (principal)
CPT/HCPCS: 36415; 84439; 84443

== ENCOUNTER 2025-03-25 15:51 | Outpatient (REF) | payer OTHER, SELFPAY ==
--- OUTSIDE RECORDS SUMMARY | 2025-03-25 19:59 | XMS_ITS | Patient Health Record ---
Author Organization [facility] Address [address] [place] [id number] Care Team Providers Care Program Management Intern Name Role Phone Driss MERA, Jamilah Primary Care Provider Un available [place] Key Unavailable [phone] Reason For Referral No Information Medications Medication SIG (Take, Route, Frequency, Duration) Notes Start Date End Date Status Hyoscyamine Sulfate 0.125 MG Tablet TAKE 1-2 TABLETS BY MOUTH 4 TIMES DAILY NEEDED FOR ABDOMINAL CRAMPS; Duration: 30 Active Plan Of Treatment No Information
--- OUTSIDE RECORDS SUMMARY | 2025-03-25 19:59 | XMS_ITS | Clinical Summary ---
Author Organization [facility] Address [address] [address] Phone Care Team Providers Care Dye Boarding Machine Operator Name Role Phone Zahira Ma MD Primary [...] topic Medical Devices Not on file [place] [place] [address] [place] [address] [place] [address] [employer] A[employer] [facility] Care Teams Dye Boarding Machine Operator Relationship Specialty Start Date End Date Zahira Ma MD [address] [place] [id number] PCP - General Internal Medicine 07/17/22 Additional Source Comments The information contained in this document represents components of the legal health record. It is not the complete legal health record.[facility]
--- OUTSIDE RECORDS SUMMARY | 2025-03-25 19:59 | XMS_ITS | Clinical Summary ---
Author Organization [facility] Address [address] [place] [address] Phone Care Team Providers Care Cleaning Laborer Name Role Phone Unavailable Primary Care Provider [...]
--- OUTSIDE RECORDS SUMMARY | 2025-03-25 19:59 | XMS_ITS | Encounter Summary ---
Author Organization [facility] Address [address] [place] [phone] Phone Care Team Providers Care Patent Drafter Name Role Phone Mignon Quiroga MD Primary Care Provider Encounter Details Date Type Department Care Team (Late st Contact Info) Description 11/24/2016 Conversion Encounter [facility] [place] [address] [place] [address] Social History Tobacco Use Types Packs/Day Years [...] on filedocumented in this encounter Care Teams Patent Drafter Relationship Specialty Start Date End Date Mignon Quiroga MD [address] [place] [address] PCP - General 11/18/16 07/18/22 documented as of this encounter
== END 2025-03-25 15:52 | disposition home or self-care (01) ==
LOC: HO.WFDLDS 15:51
PROVIDERS: Visit Provider Internal Medicine
DX: E03.9 Hypothyroidism, unspecified (principal)
CPT/HCPCS: 36415; 84443